=== PATIENT | female | born 1970 | race Caucasian/White ===

== ENCOUNTER → 2017-01-07 | Outpatient (CLI) | payer BC, MEDICARE ==
[~2017-01-07] MED LIST: ACETAMINOPHEN; AMBIEN CR PO; AMBIEN PO; ANAPROX DS; ATIVAN PO; ATORVASTATIN CA20 MG PO; BUTRANS1 EAC1 TD; BYSTOLIC10 MG PO; BYSTOLIC5 MG PO; CELEXA10 MG PO; CIPRO PO; DOXYCYCLINE HY100 M1 PO; FLEXERIL PO; HYCODAN60 ML 5MG/ PO; LEVAQUIN250 MG DOB; LEVAQUIN750 MG PO; LORTAB 10-5001 EACH; LORTAB 10/500 T1 TAB PO; LORTAB 7.5-5001 TAB PO; MEDROL DOSEPAK4 MG PO; METOPROLOL SUCC25 MG PO; MULTI VITAMIN1 EACH PO; MUSCLE RELAXER; NORCO 10-325 TA1 TAB PO; NORCO 10/3251 TAB PO; PHENERGAN PR; PHENERGAN25 MG PO; ROBITUSSIN A-C-S1 ML PO; THERA FLU; TYLOX 5/500 CAP1 CAP; WELLBUTRIN PO; WELLBUTRIN SR150 MG PO; XANAX XR1 MG PO; ZOLOFT; [UNRECOGNIZED DRUG - OTHER]
--- NOTE | ~2017-01-07 | CT2 ---
[facility] A Service of [facility] & [facility] RADIOLOGY TEXT RESULTS PATIENT: BAILEY ROSS LOCATION: [facility] : 68 UNIT #: [id number] AGE: [address]: SAMANTHA BRANNON APRN SEX: F ORDER DR: [id number] [facility] [address] [place], [place] [address] [id number] O MR#: [id number] Acc #: [id number] NAME: BAILEY ROSS : 1970 SEX: F STUDY DATE/TIME: 01/07/2017 14:46 UNIT: [facility] ROOM: STUDY DESCRIPTION: CT Abd and Pelv W Cont Attending Physician: Samantha Brannon A.P.R.N. Ordering Physician: Samantha Brannon A.P.R.N. Primary Care Physician: No Primary Care Physician MEDICAL IMAGING REPORT This report is preliminary unless electronic signature is present REVISED REPORT EXAM CT of the abdomen and pelvis with contrast. DATE OF EXAM 01/07/2017 INDICATION Left lower quadrant pain and weight loss for 1-year. COMPARISON 12/28/2013 TECHNIQUE The patient was given 100 mL of Isovue-370 and axial 5 mm images were obtained through the abdomen and pelvis. Oral contrast was also administered. NOTE: This CT exam was performed with one or more of the following radiation dose reduction techniques: automatic exposure control, adjustment of mA and/or kV according to patient size, and iterative reconstruction. FINDINGS Lung bases are clear. The liver, gallbladder, spleen, pancreas, and adrenal glands are normal. The kidneys show an interval cyst. The kidneys are enlarged. There are some nonobstructing stones in the left kidney. There are at least 3 stones present measuring up to 8 mm in diameter. These findings are stable. There is no hydronephrosis visible. The aorta is normal in size, and there is no adenopathy. The bowel, including the appendix appears normal. The right adnexa appears normal. The left ovary contains 2 cystic lesions, one is 2 cm in size and the other is 2.4 cm in size. It is difficult to tell if they are present on STS. [facility] A Service of [facility] & [facility] RADIOLOGY TEXT RESULTS PATIENT: BAILEY ROSS LOCATION: [facility] : [birth year] UNIT #: [id number] AGE: [address]: SAMANTHA BRANNON APRN SEX: F ORDER DR: the prior study, but if they were, they have certainly increased in size. The bladder is normal. The bones show mild degenerative changes. There are postoperative changes in the anterior abdominal wall. IMPRESSION 1. The left ovary contains 2 cystic areas, 1 measuring 2 cm, and the other measuring 2.4 cm in size in the area of the new or enlarging from 12/28/2013. The patient had pelvic ultrasound back in 10/13/2016, and it did show 1 cystic lesion in the left ovary. Given the patient's age, it may be physiologic and I suggest a followup ultrasound in a couple of months. 2. Otherwise, the study is negative. *ORDERING MODIFIED* Dictated by... Avery Alexander M.D. THIS IS AN ELECTRONICALLY VERIFIED REPORT Avery Alexander M.D. at 01/08/2017 10:07 AM LY/carolin TD: 01/07/2017 21:34 JOB #: [id number] CC: Jasen/wandaision Please Delete MEDICAL IMAGING REPORT COPY
[2017-01-07 14:03] LABS: HEMATOCRIT 39.9 % (35.0-45.0); HEMOGLOBIN 13.6 gm/dL (12.0-16.0); MEAN CELL VOLUME 94.5 FL (83-96); MEAN CORPUSCULAR HEMOGLOBIN 32.3 PG (28-34); MEAN CORPUSCULAR HGB CONC 34.2 g/dL (30-36); MEAN PLATELET VOLUME 8.9 FL (6.5-11.5); RED BLOOD COUNT 4.22 X10e (3.90-5.30); RED CELL DISTRIBUTION WIDTH 13.5 % (11.0-15.5)
[2017-01-07 15:07] LABS: ALBUMIN SERUM 4.1 g/dL (3.5-5.0); ALKALINE PHOSPHATASE 45 U/L (32-92); ALT (SGPT) 6 U/L (10-40); AST (SGOT) 14 U/L (10-42); BILIRUBIN,TOTAL 0.5 mg/dL (0.2-2.0); BLOOD UREA NITROGEN 12 mg/dL (9-23); BUN/CREATININE RATIO 17.14; CALCIUM SERUM 9.1 mg/dL (8.4-10.2); CARBON DIOXIDE 28 mmol/L (22-31); CHLORIDE 105 mmol/L (100-111); CREATININE SERUM 0.7 mg/dL (0.6-1.4); GLOM FILT RATE Estimated ABOVE60 mL/min (>60); GLUCOSE FASTING 60 mg/dL (70-110); PROTEIN TOTAL SERUM 7.1 g/dL (6.0-8.3); SODIUM 138 mmol/L (135-145)
[2017-01-08 09:34] LABS: POC - CREATININE 0.86 mg/dL (0.44-1.03); POC - GFR >60.0 mL/min (>60)
== END | disposition home or self-care (01) ==
LOC: CCAT 13:16
PROVIDERS: Nurse Practitioner Family
DX: R10.32 Left lower quadrant pain (principal); R63.4 Abnormal weight loss; R19.7 Diarrhea, unspecified; N83.202 Unspecified ovarian cyst, left side
CPT/HCPCS: 36415; 74177; 80053; 82565; 84443; 85027; Q9967

== ENCOUNTER 2017-01-22 10:06 | Emergency (ER) | payer BC, MEDICARE ==
--- NOTE | ~2017-01-22 | EKG ---
PATIENT: BAILEY ROSS UNIT #: [id number] Ventricular Rate: 70 BPM Atrial Rate: 70 BPM P-R Interval: 146 ms QRS Duration: 80 ms Q-T Interval: 402 ms QTC Calculation(Bezet): 434 ms P Admire: 62 degrees Calculated R Admire: 73 degrees Calculated T Admire: 60 degrees Diagnosis Line: Normal sinus rhythm Diagnosis Line: Normal ECG Diagnosis Line: When compared with ECG of 08-OCT-2013 15:00, Diagnosis Line: No significant change was found Diagnosis Line: Confirmed by EAN LEIJA MD ([id number]) on 01/23/2017 Diagnosis Line: 12:04:40 PM INTERPRETING MD: HELADIO BRITT
--- NOTE | ~2017-01-22 | CR72 ---
[facility] A Service of [facility] RADIOLOGY TEXT RESULTS PATIENT: BAILEY ROSS LOCATION: [facility] : [birth year] UNIT #: [id number] AGE: [address]: Cyrus Serrato MD SEX: F ORDER DR: [id number] [facility] [address] [place], [place] [address] [id number] E MR#: [id number] Acc #: [id number] NAME: BAILEY ROSS : 1970 SEX: F STUDY DATE/TIME: 01/22/2017 10:22 UNIT: [facility] ROOM: STUDY DESCRIPTION: CR Chest Single View Portable Attending Physician: Cyrus Serrato M.D. Ordering Physician: Cyrus Serrato M.D. Primary Care Physician: Paul Dinero M.D. MEDICAL IMAGING REPORT This report is preliminary unless electronic signature is present EXAM Chest, portable. DATE OF EXAM 01/22/2017, 1022 hours. CLINICAL HISTORY 46-year-old woman with 2-day history of chest pain and vomiting post colonoscopy. COMPARISON 11/15/2014 FINDINGS 2 portable upright views of the chest demonstrate normal cardiac, mediastinal and hilar contours. The lungs are well expanded and clear. An azygos fissure is noted as a normal variant. There is no pleural effusion, pneumothorax or free air in the abdomen. IMPRESSION No acute cardiopulmonary findings. There is no pleural effusions, pneumothorax or free air in the abdomen. An azygos fissure is noted as a normal variant. Dictated by... Ely Marques M.D. THIS IS AN ELECTRONICALLY VERIFIED REPORT Ely Marques M.D. at 01/23/2017 9:17 AM BUCKY/carolin TD: 01/22/2017 15:25 [facility] A Service of [facility] RADIOLOGY TEXT RESULTS PATIENT: BAILEY ROSS LOCATION: [facility] : [birth year] UNIT #: [id number] AGE: [address]: Cyrus Serrato MD SEX: F ORDER DR: JOB #: [id number] MEDICAL IMAGING REPORT COPY
--- NOTE | ~2017-01-22 | CT4 ---
[facility] A Service of [facility] & [facility] RADIOLOGY TEXT RESULTS PATIENT: BAILEY ROSS LOCATION: [facility] : [birth year] UNIT #: [id number] AGE: [address]: Cyrus Serrato MD SEX: F ORDER DR: [id number] [facility] [address] [place], [place] [address] [id number] E MR#: [id number] Acc #: [id number] NAME: BAILEY ROSS. : 1970 SEX: F STUDY DATE/TIME: 01/22/2017 11:26 UNIT: [facility] ROOM: STUDY DESCRIPTION: CT Abd and Pelv Wo Cont Attending Physician: Cyrus Serrato M.D. Ordering Physician: Cyrus Serrato M.D. Primary Care Physician: Paul Dinero M.D. MEDICAL IMAGING REPORT This report is preliminary unless electronic signature is present EXAM CT abdomen and pelvis 01/22 INDICATIONS 46-year-old complains of vomiting and heartburn that started yesterday morning. Patient had a colonoscopy 2 days ago. TECHNIQUE Axial images were obtained through the abdomen and pelvis without contrast. Multiplanar reformats were obtained. This CT exam was performed with one or more of the following radiation dose reduction techniques: automatic exposure control, adjustment of mA and/or kV according to patient size, and iterative reconstruction. COMPARISON 01/07/2017 FINDINGS Abdomen: Lung bases are clear. Gallbladder is unremarkable. Bilateral nonobstructing renal stones are again seen. No ureteral stones are seen and there is no hydronephrosis. Both kidneys are polycystic. Unenhanced solid organs are otherwise normal. Patient is status post mesh repair of the ventral wall. Unopacified GI tract is grossly normal. There is no free fluid. Pelvis: The appendix is normal. The remainder of the unopacified GI tract is normal as well. No lower ureteral stones are seen. The bladder is normal. Solid pelvic organs are normal. There is bilateral sacral ileitis. IMPRESSION 1. No acute findings in the abdomen or pelvis. 2. Bilateral nonobstructing renal stones. No ureteral stones are seen. [facility] A Service of [facility] & [facility] RADIOLOGY TEXT RESULTS PATIENT: BAILEY ROSS [id number] [birth year] UNIT #: [id number] AGE: [address]: Cyrus Serrato MD SEX: F ORDER DR: There is no hydronephrosis. 3. Polycystic kidneys. 4. Normal unopacified GI tract, including the appendix. Dictated by... Jasen Knapp Jr., M.D. THIS IS AN ELECTRONICALLY VERIFIED REPORT Jasen Knapp Jr., M.D. at 01/26/2017 2:23 PM RLK/regina TD: 01/22/2017 16:38 JOB #: [id number] MEDICAL IMAGING REPORT COPY
[2017-01-22 10:51] LABS: BASOPHIL% 0.5 % (0-2.5); EOSINOPHIL# 0.1 X10e3 (0-0.7); HEMATOCRIT 44.7 % (35.0-45.0); HEMOGLOBIN 14.9 gm/dL (12.0-16.0); LYMPHOCYTE# 2.1 X10e3 (1.0-3.5); LYMPHOCYTE% 20.4 % (17.0-45.0); MEAN CELL VOLUME 95.5 FL (83-96); MEAN CORPUSCULAR HEMOGLOBIN 31.8 PG (28-34); MEAN CORPUSCULAR HGB CONC 33.3 g/dL (30-36); MEAN PLATELET VOLUME 9.6 FL (6.5-11.5); MONOCYTE# 0.7 X10e3 (0-1.0); NEUTROPHIL# 7.2 X10e3 (1.5-7.1); NEUTROPHIL% 71.1 % (40-75); PLATELET COUNT 276 X10e3 (140-420); RED BLOOD COUNT 4.68 X10e (3.90-5.30); RED CELL DISTRIBUTION WIDTH 13.6 % (11.0-15.5); WHITE BLOOD COUNT 10.1 X10e3 (4.0-10.5)
[2017-01-22 10:55] LABS: DIFF IND NO
[2017-01-22 10:58] LABS: POC - CKMB <1.0 ng/mL (0.0-7.9); POC - TROPONIN <0.05 ng/mL (<=0.05)
[2017-01-22 11:16] LABS: URINE SOURCE CLEAN CATCH
[2017-01-22 11:24] LABS: URINE APPEARANCE CLOUDY; URINE BILIRUBIN NEG (NEG); URINE BLOOD TRACE (NEG); URINE COLOR YELLOW; URINE GLUCOSE NEG (NEG); URINE KETONE NEG (NEG); URINE LEUKOCYTE ESTERASE TRACE (NEG); URINE NITRATE NEG (NEG); URINE PROTEIN TRACE (NEG); URINE SPECIFIC GRAVITY 1.021 (1.003-1.035); URINE UROBILINOGEN 0.2 MG/DL (NEG)
[2017-01-22 11:26] LABS: CULTURE INDICATED? YES; URINE BACTERIA AUWI 1+ (NEGATIVE); URINE SQUAMOUS EPITHELIAL CELL MOD /[HPF]
[2017-01-22 11:27] LABS: ALBUMIN SERUM 4.3 g/dL (3.5-5.0); ALKALINE PHOSPHATASE 55 U/L (32-92); ALT (SGPT) 7 U/L (10-40); AST (SGOT) 17 U/L (10-42); BILIRUBIN,TOTAL 0.7 mg/dL (0.2-2.0); BLOOD UREA NITROGEN 12 mg/dL (9-23); BUN/CREATININE RATIO 17.14; CALCIUM SERUM 9.4 mg/dL (8.4-10.2); CARBON DIOXIDE 29 mmol/L (22-31); CHLORIDE 104 mmol/L (100-111); CREATININE SERUM 0.7 mg/dL (0.6-1.4); GLOM FILT RATE Estimated ABOVE60 mL/min (>60); GLUCOSE FASTING 99 mg/dL (70-110); LIPASE 21 U/L (22-51); POTASSIUM 4.1 mmol/L (3.5-5.1); PROTEIN TOTAL SERUM 7.1 g/dL (6.0-8.3); SODIUM 137 mmol/L (135-145)
[2017-01-22 11:28] LABS: BILIRUBIN, DIRECT <0.1 mg/dL (0.0-0.2); BILIRUBIN,INDIRECT 0.6 mg/dL (0.0-0.9)
== END 2017-01-22 13:05 | disposition home or self-care (01) ==
LOC: CED 10:06
PROVIDERS: Emergency Medicine
DX: A04.7 Enterocolitis due to Clostridium difficile (principal); K21.9 Gastro-esophageal reflux disease without esophagitis; Z88.5 Allergy status to narcotic agent; Z88.6 Allergy status to analgesic agent; F17.200 Nicotine dependence, unspecified, uncomplicated
CPT/HCPCS: 36415; 71010; 74176; 80048; 80076; 81003; 82553; 83690; 84484; 84703; 85025; 87086; 93005; 96361; 96374; 99284; J2405

== ENCOUNTER 2017-05-17 15:37 | Emergency (ER) | payer BC, MEDICARE ==
--- NOTE | ~2017-05-17 | CT4 ---
[facility] A Service of [facility] & [facility] RADIOLOGY TEXT RESULTS PATIENT: BAILEY ROSS LOCATION: [facility] : 68 UNIT #: [id number] AGE: [address]: ISMAEL MARTINEZ SEX: F ORDER DR: [id number] [address] [address] [id number] E MR#: [id number] Acc #: [id number] NAME: BAILEY ROSS. : 1970 SEX: F STUDY DATE/TIME: 05/17/2017 18:01 UNIT: [facility] ROOM: STUDY DESCRIPTION: CT Abd and Pelv Wo Cont Attending Physician: Ismael Martinez Aprn Ordering Physician: Ismael Martinez Aprn Primary Care Physician: Paul Dinero M.D. MEDICAL IMAGING REPORT This report is preliminary unless electronic signature is present. EXAM CT abdomen and pelvis, noncontrast, 05/17/2017. HISTORY 46-year-old female in the ED complaining of 1-day history of bilateral flank pain. She has a history of polycystic kidney disease. TECHNIQUE CT examination of the abdomen and pelvis without oral or IV contrast using kidney stone protocol. This CT exam was performed with one or more of the following radiation dose reduction techniques: Automatic exposure control, adjustment of mA and/or kV according to patient size, and iterative reconstruction. COMPARISON CT stone study 01/22/2017. FINDINGS Abdomen findings: Numerous cysts of varying size are distributed diffusely throughout enlarged kidneys compatible with a history of polycystic kidney disease. These include typical low-attenuation cysts and a few scattered atypical high-attenuation cysts. Multiple small nonobstructing calculi are scattered throughout both kidneys. The appearance is similar when compared with the prior study. No stone material is seen within the ureters or urinary bladder. There is no evidence of urinary obstruction. Liver, pancreas and spleen are normal in size and appearance without contrast. Nondistended gallbladder. No bile duct dilatation. Small bowel and colon are normal in caliber and appearance, as imaged. The appendix is normal. Normal-caliber abdominal aorta. Postop changes mesh graft repair of umbilical region ventral hernia. [facility] A Service of [facility] & [facility] RADIOLOGY TEXT RESULTS PATIENT: BAILEY ROSS LOCATION: [facility] : 68 UNIT #: [id number] AGE: [address]: ISMAEL MARTINEZ SEX: F ORDER DR: Pelvis findings: Uterus, ovaries, bladder and rectum are within normal limits. No significant inguinal hernia. Limited lung base images show no active disease in the lower chest. IMPRESSION 1. No acute abnormality within the abdomen or pelvis. 2. Polycystic kidney disease as noted above. Multiple small nonobstructing calculi scattered throughout both kidneys. The kidneys appear unchanged since the previous examination of 01/22/2017. 3. No stone material within the ureters or bladder. No evidence of urinary obstruction. 4. Postop changes mesh graft repair umbilical ventral hernia. 5. The remainder of the examination is negative. Dictated by... Phu Tineo M.D. THIS IS AN ELECTRONICALLY VERIFIED REPORT Phu Tineo M.D. at 05/19/2017 8:50 AM BASILIO/rosalino TD: 05/18/2017 10:42 JOB #: [id number] MEDICAL IMAGING REPORT Page 1 of 1
[2017-05-17 17:19] LABS: BASOPHIL# 0.1 X10e3 (0-0.3); BASOPHIL% 0.9 % (0-2.5); EOSINOPHIL# 0.1 X10e3 (0-0.7); EOSINOPHIL% 1.3 % (0.0-7.0); HEMATOCRIT 40.4 % (35.0-45.0); HEMOGLOBIN 13.7 gm/dL (12.0-16.0); LYMPHOCYTE# 2.2 X10e3 (1.0-3.5); LYMPHOCYTE% 23.2 % (17.0-45.0); MEAN CELL VOLUME 95.3 FL (83-96); MEAN CORPUSCULAR HEMOGLOBIN 32.3 PG (28-34); MEAN CORPUSCULAR HGB CONC 33.9 g/dL (30-36); MEAN PLATELET VOLUME 9.4 FL (6.5-11.5); MONOCYTE# 0.6 X10e3 (0-1.0); MONOCYTE% 6.2 % (3.0-12.0); NEUTROPHIL# 6.4 X10e3 (1.5-7.1); NEUTROPHIL% 68.4 % (40-75); PLATELET COUNT 234 X10e3 (140-420); RED BLOOD COUNT 4.24 X10e (3.90-5.30); RED CELL DISTRIBUTION WIDTH 13.4 % (11.0-15.5); WHITE BLOOD COUNT 9.4 X10e3 (4.0-10.5)
[2017-05-17 17:20] LABS: DIFF IND NO
[2017-05-17 17:27] LABS: URINE SOURCE CLEAN CATCH
[2017-05-17 17:30] LABS: URINE APPEARANCE CLOUDY; URINE BILIRUBIN NEG (NEG); URINE BLOOD 2+ (NEG); URINE COLOR YELLOW; URINE GLUCOSE NEG (NORM); URINE KETONE NEG (NEG); URINE LEUKOCYTE ESTERASE 3+ (NEG); URINE NITRATE POS (NEG); URINE PH 5.5 (5-8); URINE PROTEIN TRACE (NEG); URINE UROBILINOGEN 0.2 MG/DL (NORM)
[2017-05-17 17:32] LABS: MICRO INDICATED? YES
[2017-05-17 17:36] LABS: CULTURE INDICATED? YES; URINE BACTERIA 4+ (NEG); URINE SQUAMOUS EPITHELIAL CELL OCCAS /[HPF]; URINE WBC 100-200 /[HPF] (0-5)
[2017-05-17 17:39] LABS: ALKALINE PHOSPHATASE 50 U/L (32-92); ALT (SGPT) 6 U/L (10-40); AST (SGOT) 14 U/L (10-42); BILIRUBIN,TOTAL 0.6 mg/dL (0.2-2.0); BLOOD UREA NITROGEN 12 mg/dL (9-23); BUN/CREATININE RATIO 17.14; CALCIUM SERUM 8.6 mg/dL (8.4-10.2); CARBON DIOXIDE 25 mmol/L (22-31); CHLORIDE 105 mmol/L (100-111); CREATININE SERUM 0.7 mg/dL (0.6-1.4); GLOM FILT RATE Estimated 103.2 mL/min (>60); GLUCOSE FASTING 82 mg/dL (70-110); LIPASE 28 U/L (22-51); POTASSIUM 3.9 mmol/L (3.5-5.1); PROTEIN TOTAL SERUM 6.9 g/dL (6.0-8.3); SODIUM 135 mmol/L (135-145)
[2017-05-17 17:42] LABS: BILIRUBIN, DIRECT <0.1 mg/dL (0.0-0.2); BILIRUBIN,INDIRECT 0.5 mg/dL (0.0-0.9)
== END 2017-05-17 19:36 | disposition home or self-care (01) ==
LOC: SED 15:37
PROVIDERS: Nurse Practitioner Family
DX: N39.0 Urinary tract infection, site not specified (principal); I10 Essential (primary) hypertension; F17.210 Nicotine dependence, cigarettes, uncomplicated; Z87.442 Personal history of urinary calculi; Z98.890 Other specified postprocedural states; Z88.5 Allergy status to narcotic agent; Z88.6 Allergy status to analgesic agent; Z88.2 Allergy status to sulfonamides
CPT/HCPCS: 36415; 74176; 80048; 80076; 81003; 83690; 84703; 85025; 87086; 87088; 87186; 96361; 96374; 96375; 99284; J1885; J2405